=== PATIENT | female | born 1995 | race Caucasian/White ===

== ENCOUNTER 2016-09-19 08:01 | Emergency (ER) | payer MEDICAID, OTHER ==
[~2016-09-19] VITALS: Ht 162.6 cm; Wt 54.4 kg
[2016-09-19 08:16] VITALS: BP 127/71
== END 2016-09-19 08:51 | disposition home or self-care (01) ==
LOC: ER 08:01
DX: K21.9 Gastro-esophageal reflux disease without esophagitis (principal); J45.909 Unspecified asthma, uncomplicated; E07.89 Other specified disorders of thyroid